=== PATIENT | male | born 1975 | race Caucasian/White ===

== ENCOUNTER 2017-02-17 22:19 | Emergency (ER) | payer OTHER ==
[2017-02-17] MEDS ORDERED: Diphtheria,Pertussis(Acell),Tetanus Vaccine 0.5 ML Syringe IM ONE (22:26)
[2017-02-17 22:30] VITALS: BP 133/74
--- NOTE | 2017-02-17 22:30 | EDM.PDOC ---
ED HPI GENERAL MEDICAL PROBLEM - General Stated Complaint: CUT ON RIGHT THIGH Time Seen by Provider: 02/17/17 22:27 Source of Information: Reports: Patient - History of Present Illness INITIAL COMMENTS - FREE TEXT/NARRATIVE: HISTORY AND PHYSICAL: History of present illness: [] Patient has 1.5-2 cm linear laceration right anterior thigh, he was cutting boxes with a razor blade slipped and sustained As above approximately 3 inches above the patella right on midline wound it bled well superficial full- thickness skin no vascular lesion no fever nausea vomiting chills sweats Review of systems: As per history of present illness and below otherwise all systems reviewed and negative. Past medical history: As per history of present illness and as reviewed below otherwise noncontributory. Surgical history: As per history of present illness and as reviewed below otherwise noncontributory. Social history: No reported history of drug or alcohol abuse. Family history: As per history of present illness and as reviewed below otherwise noncontributory. Physical exam: HEENT: Atraumatic, normocephalic, pupils reactive, negative for conjunctival pallor or scleral icterus, mucous membranes moist, throat clear, neck supple, nontender, trachea midline. Lungs: Clear to auscultation, breath sounds equal bilaterally, chest nontender. Heart: S1S2, regular, negative for clicks, rubs, or JVD. Abdomen: Soft, nondistended, nontender. Negative for masses or hepatosplenomegaly. Negative for costovertebral tenderness. Pelvis: Stable nontender. Genitourinary: Deferred. Rectal: Deferred. Extremities: Atraumatic, negative for cords or calf pain. Neurovascular unremarkable. Neuro: Awake, alert, oriented. Cranial nerves II through XII unremarkable. Cerebellum unremarkable. Motor and sensory unremarkable throughout. Exam nonfocal. Diagnostics: [] Therapeutics: [] Or 2 erin interrupted Tetanus status is updated Impression: []2 Centimeter linear laceration Definitive disposition and diagnosis as appropriate pending reevaluation and review of above. - Related Data Allergies Allergy/AdvReac Type Severity Reaction Status Date / Time No Known Allergies Allergy Verified 02/17/17 22:28 Home Meds: Home Meds . [No Known Home Meds] 02/17/17 [History] ED ROS GENERAL - Review of Systems Review Of Systems: ROS reveals no pertinent complaints other than HPI. ED EXAM, GENERAL - Physical Exam Exam: See Below Course - Orders/Labs/Meds Orders: Active Orders 24 hr Category Date Time Status Vaccines to be Administered [RC] PER UNIT ROUTINE Care 02/17/17 22:26 Ordered Diphth,Pertuss(Acell),Tet Vac [Adacel] Med 02/17/17 22:26 Once 0.5 ml IM .ONCE ONE Departure - Departure Time of Disposition: 22:28 Disposition: Home, Self-Care 01 Condition: good Clinical Impression: Laceration - Discharge Information Additional Instructions: Standard wound care as instructed Keep wound clean and dry for 48 hours Return of red warm or pus drainage should it develop Erin out in 10 days he may return to ER for removal The following information is given to patients seen in the emergency department who are being discharged to home. This information is to outline your options for follow-up care. We provide all patients seen in our emergency department with a follow-up referral. The need for follow-up, as well as the timing and circumstances, are variable depending upon the specifics of your emergency department visit. If you don't have a primary care physician on staff, we will provide you with a referral. We always advise you to contact your personal physician following an emergency department visit to inform them of the circumstance of the visit and for follow-up with them and/or the need for any referrals to a consulting specialist. The emergency department will also refer you to a specialist when appropriate. This referral assures that you have the opportunity for follow-up care with a specialist. All of these measure are taken in an effort to provide you with optimal care, which includes your follow-up. Under all circumstances we always encourage you to contact your private physician who remains a resource for coordinating your care. When calling for follow-up care, please make the office aware that this follow-up is from your recent emergency room visit. If for any reason you are refused follow-up, please contact the [facility] emergency department at and asked to speak to the emergency department charge nurse. - My Orders Last 24 Hours: My Active Orders 02/17/17 22:26 Vaccines to be Administered [RC] PER UNIT ROUTINE Diphth,Pertuss(Acell),Tet Vac [Adacel] 0.5 ml IM .ONCE ONE - Assessment/Plan Last 24 Hours: My Active Orders 02/17/17 22:26 Vaccines to be Administered [RC] PER UNIT ROUTINE Diphth,Pertuss(Acell),Tet Vac [Adacel] 0.5 ml IM .ONCE ONE
== END 2017-02-17 22:41 | disposition home or self-care (01) ==
LOC: MW.ED 22:19
DX: S71.111A Laceration without foreign body, right thigh, initial encounter (principal); Z23 Encounter for immunization; W45.8XXA Other foreign body or object entering through skin, initial encounter
CPT/HCPCS: 12001; 90471; 90715; 99282; 99282-25

== ENCOUNTER 2020-03-02 21:02 | Emergency (ER) | payer OTHER ==
[2020-03-02] MEDS ORDERED: Sodium Chloride 0.9% 2.5 ML Syringe FLUSH PRN (21:15)
[2020-03-02] MEDS ORDERED: Sodium Chloride 0.9% 10 ML Syringe FLUSH PRN (21:15)
[2020-03-02] MEDS ORDERED: Ibuprofen 600 MG Tab PO ONE (21:18)
[2020-03-02] MEDS ORDERED: Acetaminophen/HYDROcodone 325-5 MG Tab PO ONE (21:18)
[2020-03-02 21:51] LABS: BLOOD UREA NITROGEN,BUN 13 mg/dL (7.0-18.0); CARBON DIOXIDE,CO2 22.8 mmol/L (21.0-32.0); CHLORIDE,CL 101 mmol/L (98-107); GLUCOSE RANDOM 109 mg/dL (74-106); POTASSIUM,K 3.5 mmol/L (3.5-5.1); SODIUM,NA 137 mmol/L (136-148)
--- NOTE | 2020-03-02 21:53 | CT ---
INDICATION: Trauma TECHNIQUE: CT maxillofacial without contrast. COMPARISON: None FINDINGS: Facial bones: Fracture of the maxillary spine with adjacent subcutaneous air. Orbits and globes: Unremarkable. Sinuses: Mucosal thickening right frontal, ethmoid and maxillary sinuses with obstruction of the right frontal recess and ostiomeatal complex. Mucosal thickening left maxillary sinus. Soft tissues: Unremarkable. IMPRESSION: Fracture of the maxillary spine with adjacent subcutaneous air. Mucosal thickening right frontal, ethmoid and maxillary sinuses with obstruction of the right frontal recess and ostiomeatal complex. Mucosal thickening left maxillary sinus. Dictated by Da Quijano MD @ 03/02/2020 9:51:38 PM Please note that all CT scans at this facility use dose modulation, iterative reconstruction, and/or weight-based dosing when appropriate to reduce radiation dose to as low as reasonably achievable. Dictated by: Da Quijano MD @ 03/02/2020 21:51:44 (Electronically Signed)
--- NOTE | 2020-03-02 21:58 | CT ---
INDICATION: Trauma TECHNIQUE: CT cervical spine without contrast. COMPARISON: None FINDINGS: Vertebral alignment: Alignment is normal. Vertebrae: There are no fractures or suspicious bony lesions. Discs and facet joints: Disc spaces and facets are within normal limits. Extraspinal findings: Prevertebral soft tissues, visualized airway, and visualized lungs are unremarkable. IMPRESSION: Atraumatic appearance of the cervical spine. Dictated by Da Quijano MD @ 03/02/2020 9:56:03 PM Please note that all CT scans at this facility use dose modulation, iterative reconstruction, and/or weight-based dosing when appropriate to reduce radiation dose to as low as reasonably achievable. Dictated by: Da Quijano MD @ 03/02/2020 21:56:08 (Electronically Signed)
--- NOTE | 2020-03-02 22:04 | CT ---
INDICATION: Trauma TECHNIQUE: CT head without contrast. COMPARISON: None FINDINGS: CSF spaces: Within normal limits for age. Brain parenchyma: The cartagena-white differentiation is normal. No sign of mass, hemorrhage, or midline shift. Skull base and calvarium: Pansinus disease. The visualized orbits are grossly unremarkable. No skull fractures. IMPRESSION: Atraumatic appearance of the brain. Dictated by Da Quijano MD @ 03/02/2020 10:03:17 PM Please note that all CT scans at this facility use dose modulation, iterative reconstruction, and/or weight-based dosing when appropriate to reduce radiation dose to as low as reasonably achievable. Dictated by: Da Quijano MD @ 03/02/2020 22:03:23 (Electronically Signed)
--- NOTE | 2020-03-02 22:08 | CT ---
INDICATION: Trauma TECHNIQUE: CT chest was acquired without IV contrast. COMPARISON: None FINDINGS: Cardiovascular structures: Heart size is normal. Thoracic aorta and main pulmonary artery are normal in caliber. Mediastinum and demond: No mass or adenopathy. Lungs: Clear. Pleura and pericardium: No effusions. Chest wall and axilla: No mass or adenopathy. Bones: No significant findings. Upper abdomen: Unremarkable. IMPRESSION: Atraumatic appearance to the chest. Dictated by Da Quijano MD @ 03/02/2020 10:06:23 PM Please note that all CT scans at this facility use dose modulation, iterative reconstruction, and/or weight-based dosing when appropriate to reduce radiation dose to as low as reasonably achievable. Dictated by: Da Quijano MD @ 03/02/2020 22:06:29 (Electronically Signed)
[2020-03-02 22:13] VITALS: BP 147/95; PULSE 107
[2020-03-02] MEDS ORDERED: ceFAZolin 2 GM in Premix Bag 1 BAG IV ONE (23:17)
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
== END 2020-03-03 00:15 | disposition home or self-care (01) ==
LOC: MW.ED 21:02
DX: S02.2XXA Fracture of nasal bones, initial encounter for closed fracture (principal); S06.0X1A Concussion with loss of consciousness of 30 minutes or less, initial encounter; S01.511A Laceration without foreign body of lip, initial encounter; S20.212A Contusion of left front wall of thorax, initial encounter; Y92.828 Other wilderness area as the place of occurrence of the external cause
CPT/HCPCS: 36415; 40650; 70450; 70486; 71250; 72125; 80053; 85025; 96365; 99284; A9270; J0690; J2001; 12015; 99285

== ENCOUNTER 2020-07-22 16:26 | Emergency (ER) | payer OTHER ==
[~2020-07-22 16:26] MED LIST: Bacitracin Oint 1 GM U/D Packet TOP ONE
[2020-07-22] MEDS ORDERED: Bacitracin Oint 1 GM U/D Packet ONE (16:43)
--- NOTE | 2020-07-22 17:54 | EDM.PDOC ---
ED HPI GENERAL MEDICAL PROBLEM - General Chief Complaint: ENT Problem Stated Complaint: NOSE BLEED Time Seen by Provider: 07/22/20 16:34 - History of Present Illness INITIAL COMMENTS - FREE TEXT/NARRATIVE: HISTORY AND PHYSICAL: History of present illness: This 44-year-old gentleman with no significant past medical history presents ER today secondary to bleeding from his left nares. Patient reports that he went to get a coronavirus test earlier today and while being swabbed he started having bleeding from his left naris. Patient has no other complaints. Patient has any recent fevers, shakes, chills, nausea, vomiting, diarrhea. Patient reports he is not on any anticoagulant or antiplatelet medications. Patient reports he is has not had any prior issues with nosebleeds. Review of systems: As per history of present illness and below otherwise all systems reviewed and negative. Past medical history: As per history of present illness and as reviewed below otherwise noncontributory. Surgical history: As per history of present illness and as reviewed below otherwise noncontributory. Social history: No reported history of drug or alcohol abuse. Family history: As per history of present illness and as reviewed below otherwise noncontributory. Physical exam: Constitutional: Patient is oriented to person, place, and time. Appears well- developed and well-nourished. No distress. HEENT: Moist mucous membranes Head: Normocephalic and atraumatic Eyes: Right eye exhibits no discharge. Left eye exhibits no discharge. No scleral icterus Neck: Normal range of motion. No tracheal deviation present. Cardiovascular: Normal rate and regular rhythm. Pulmonary: Effort normal, no respiratory distress. Abdominal: No distention Musculoskeletal: Normal range of motion Neurologic: Alert and oriented to person, place and time. Skin: [place], warm and dry. Psychiatric: Normal mood and affect. Behavior is normal. Judgment and thought content normal. Nursing note and vital signs have been reviewed Patient's ER physical exam is significant for clot noted within his left naris. Patient with slow bleeding from his left naris. His right nares is clear. Assessment and plan: This is a 44-year-old gentleman who presents ER today secondary epistaxis. Epistaxis is most likely secondary to trauma from a coronavirus test. Patient's nares were visualized after he blew out a large clot from his left naris. Small area of bleeding identified in the posterior aspect of the nasal septum. No bleeding in the anterior aspect of the nasal septum was identified. Nasal clamp was placed for approximately 15 minutes and patient was reevaluated. After reevaluation, silver nitrate sticks were utilized to cauterize the area of concern where the bleeding was coming from. After the cauterization, bacitracin ointment was applied to the nares. And nasal clamps were applied for an additional 15 minutes. After nasal clamps were removed, the patient was monitored in the ED for approximately 30 minutes without any further active bleeding. Patient is 44 years old, healthy and on no medications. No indication at this time to draw labs as the injury and the bleeding appear to be secondary to trauma from the coronavirus test. Patient will be discharged to home with instructions to utilize the nasal clamp if bleeding should recur. Patient be instructed to utilize Neosporin or bacitracin ointment twice daily to both nares. Patient was instructed that if bleeding should return that is not resolved with nasal clamps for 15 minutes then he should return to the ER for reevaluation and possible packing of his nares. Reassessment at the time of disposition demonstrates that the patient is in no acute distress. The patient has remained stable throughout the entire ED visit and is without objective evidence for acute process requiring urgent intervention or hospitalization. The patient is stable for discharge, counseling is provided as documented above, discussed symptomatic treatment and specific conditions for return. I have spoken with the patient/caregiver and discussed todays findings, in addition to providing specific details for the plan of care. Questions are answered and there is agreement with the plan. Definitive disposition and diagnosis as appropriate pending reevaluation and review of above. - Related Data Allergies Allergy/AdvReac Type Severity Reaction Status Date / Time No Known Allergies Allergy Verified 07/22/20 16:36 Home Meds: Home Meds Ibuprofen [Motrin] 600 mg PO Q6H PRN #30 tab 03/03/20 [Rx] Past Medical History HEENT History: Reports: None Cardiovascular History: Reports: None Respiratory History: Reports: None Gastrointestinal History: Reports: None Genitourinary History: Reports: None Musculoskeletal History: Reports: None Neurological History: Reports: None Psychiatric History: Reports: None Endocrine/Metabolic History: Reports: None Hematologic History: Reports: None Immunologic History: Reports: None Oncologic (Cancer) History: Reports: None Dermatologic History: Reports: None - Infectious Disease History Infectious Disease History: Reports: Chicken Pox - Past Surgical History GI Surgical History: Reports: Other (See Below) Other GI Surgeries/Procedures: Abdominal Surgery/colon surgery as a child Male Surgical History: Reports: None Social & Family History - Family History Family Medical History: Noncontributory - Tobacco Use Tobacco Use Status *Q: Never Tobacco User - Caffeine Use Caffeine Use: Reports: Soda - Recreational Drug Use Recreational Drug Use: No ED ROS GENERAL - Review of Systems Review Of Systems: See Below ED EXAM, GENERAL - Physical Exam Exam: See Below Course - Vital Signs Last Recorded V/S: Last Vital Signs Temp Pulse 69 07/22/20 16:37 Resp 17 07/22/20 16:37 BP 150/46 H 07/22/20 16:37 Pulse Ox 97 07/22/20 16:37 - Orders/Labs/Meds Meds: Medications Discontinued Medications Generic Name Dose Route Start Last Admin Trade Name Freq PRN Reason Stop Dose Admin Bacitracin Confirm 07/22/20 16:43 Bacitracin Oint 1 Gm Administered 07/22/20 16:44 Dose 1 dose .ROUTE .STK-MED ONE Departure - Departure Time of Disposition: 17:56 Disposition: Home, Self-Care 01 Condition: Good Clinical Impression: Epistaxis due to trauma - Discharge Information Instructions: Nosebleed, Adult Referrals: Shailesh Bernardo MD [Primary Care Provider] - Forms: ED Department Discharge Additional Instructions: You were seen and evaluated in the ER today secondary to nosebleed most likely from trauma from the coronavirus test. We are identified the area of bleeding and placed silver nitrate on that area to help cauterize the vessel. Bacitracin has been used to help coat your nostril. You will be discharged home with a nasal clamp to utilize if the bleeding should restart. If you should start rebleeding we recommend that you place the nasal clamp on for approximately 10 minutes. If bleeding is persistent, please repeat and apply the nasal clamp for an additional 10 minutes. If bleeding persists after the second attempt and you will likely need to return to the ER for a nasal packing. The following information is given to patients seen in the emergency department who are being discharged to home. This information is to outline your options for follow-up care. We provide all patients seen in our emergency department with a follow-up referral. The need for follow-up, as well as the timing and circumstances, are variable depending upon the specifics of your emergency department visit. If you don't have a primary care physician on staff, we will provide you with a referral. We always advise you to contact your personal physician following an emergency department visit to inform them of the circumstance of the visit and for follow-up with them and/or the need for any referrals to a consulting specialist. The emergency department will also refer you to a specialist when appropriate. This referral assures that you have the opportunity for follow-up care with a specialist. All of these measure are taken in an effort to provide you with optimal care, which includes your follow-up. Under all circumstances we always encourage you to contact your private physician who remains a resource for coordinating your care. When calling for follow-up care, please make the office aware that this follow-up is from your recent emergency room visit. If for any reason you are refused follow-up, please contact the [facility] Emergency Department at and asked to speak to the emergency department charge nurse. [facility] - Primary [facility] [address] [place] [id number] [address] Sepsis Event Note (ED) - Evaluation Sepsis Screening Result: No Definite Risk - Focused Exam Vital Signs: Vital Signs Pulse Resp BP Pulse Ox 07/22/20 16:37 69 17 150/46 H 97
[2020-07-22 18:56] VITALS: BP 111/79; PULSE 64
== END 2020-07-22 18:25 | disposition home or self-care (01) ==
LOC: MW.ED 16:26
DX: R04.0 Epistaxis (principal)
CPT/HCPCS: 30905; 99283-25

== ENCOUNTER 2020-07-22 22:14 | Emergency (ER) | payer MEDICAID, OTHER ==
--- NOTE | 2020-07-22 23:28 | EDM.PDOC ---
ED HPI GENERAL MEDICAL PROBLEM - General Chief Complaint: ENT Problem Stated Complaint: NOSE BLEED Time Seen by Provider: 07/22/20 22:57 - History of Present Illness INITIAL COMMENTS - FREE TEXT/NARRATIVE: CHIEF COMPLAINT(S): Bloody nose HISTORY OF PRESENT ILLNESS: This is a 44-year-old man who is seen in our emergency department earlier today for epistaxis secondary to COVID-19 swab who comes to the emergency department with a chief complaint of bloody nose. The patient states that he had gone home and was doing fine. He states that there has been some small drainage and then approximately 1 hour prior to arrival he started to experience gushing of blood out of his left nose. He states that he use the clamp that was given to him and applied it for 30 minutes. He states that the bleeding did stop however it did recur. He states that since that time it has stopped however he decided to come to the emergency department given the amount of blood that was coming out. He denies any headache. He states that he did have 2 spit up some blood however denies any current feeling of blood in his posterior pharynx. He denies any use of oral anticoagulation or bleeding disorders. REVIEW OF SYSTEMS: Constitutional: Denies fever, chills. Eyes: Denies eye pain Ears, Nose, Mouth, & Throat: Positive for epistaxis Cardiovascular: Denies chest pain Respiratory: Denies shortness of breath Gastrointestinal: Denies Nausea, vomiting, diarrhea, hematochezia. Genitourinary: Denies hematuria Skin:Denies a rash Neurological: Denies blurred vision Psychiatric: Denies depression PAST MEDICAL HISTORY: As per history of present illness and as reviewed below otherwise noncontributory. SURGICAL HISTORY: As per history of present illness and as reviewed below otherwise noncontributory. SOCIAL HISTORY: As per history of present illness and as reviewed below otherwise noncontributory. FAMILY HISTORY: As per history of present illness and as reviewed below otherwise noncontributory. EXAMINATION OF ORGAN SYSTEMS/BODY AREAS: Constitutional: Blood pressure was 131/76, heart rate 56, respiratory rate 18 with an oxygen saturation of 97% on room air. Temperature 36.3 General: Overall well-appearing man who is in no acute distress. Psychiatric: Appropriate mood and affect. Eyes: No scleral icterus or conjunctival erythema ENMT: Moist mucous membranes. No pharyngeal erythema there does not appear to be any active bleeding visualized in the posterior pharynx. Right nasal turbinate is clear. There is some dried blood in the left naris without any active bleeding. Cardiovascular: Regular, rate, and rythym. No gallops, murmurs, or rubs. Bilateral upper extremity pulses symmetric and intact. No peripheral edema. No JVD. Respiratory: Lungs clear to auscultation bilaterally. No wheezes, rales, or rh onchi. Neurological: Alert, GCS 15 MEDICAL DECISION MAKING AND COURSE IN THE ED WITH INTERPRETATION/REVIEW OF DIAGNOSTIC STUDIES: This is a 44-year-old man with resultant epistaxis status post COVID-19 swab who was evaluated in our emergency department today status post cauterization with recurrent epistaxis and examination revealing no active bleeding with stable vital signs. At this time I did discuss with the patient that at this time no intervention is needed. I did discuss that he did do the right thing by using the compression device or his fingers that this should be used for 15 minutes. He is to return to the emergency department if the bleeding does not stop. I did discuss the use of humidifier and other methods of trying to eliminate recurrence. He is to return to the emergency department for any new or worsening symptoms. DISPOSITION: The patient was discharged home in stable condition. Patient will follow up with primary care physician as needed CONDITION: Fair PROCEDURES: None FINAL IMPRESSION(S)/DIAGNOSES: 1. Acute epistaxis, resolved Jamie Stokes M.D. Headache Pain Score (Numeric/FACES): 4 - Related Data Allergies Allergy/AdvReac Type Severity Reaction Status Date / Time No Known Allergies Allergy Verified 07/22/20 23:06 Home Meds: Home Meds Ibuprofen [Motrin] 600 mg PO Q6H PRN #30 tab 03/03/20 [Rx] Past Medical History HEENT History: Reports: None Cardiovascular History: Reports: None Respiratory History: Reports: None Gastrointestinal History: Reports: None Genitourinary History: Reports: None Musculoskeletal History: Reports: None Neurological History: Reports: None Psychiatric History: Reports: None Endocrine/Metabolic History: Reports: None Hematologic History: Reports: None Immunologic History: Reports: None Oncologic (Cancer) History: Reports: None Dermatologic History: Reports: None - Infectious Disease History Infectious Disease History: Reports: Chicken Pox - Past Surgical History GI Surgical History: Reports: Other (See Below) Other GI Surgeries/Procedures: Abdominal Surgery/colon surgery as a child Male Surgical History: Reports: None Social & Family History - Family History Family Medical History: Noncontributory - Tobacco Use Tobacco Use Status *Q: Never Tobacco User - Caffeine Use Caffeine Use: Reports: None - Recreational Drug Use Recreational Drug Use: No ED ROS ENT - Review of Systems Review Of Systems: See Below ED EXAM, ENT - Physical Exam Exam: See Below Course - Vital Signs Last Recorded V/S: Last Vital Signs Temp 36.3 C 07/22/20 23:38 Pulse 56 L 07/22/20 23:38 Resp 18 07/22/20 23:38 BP 131/76 07/22/20 23:38 Pulse Ox 97 07/22/20 23:38 Departure - Departure Time of Disposition: 23:27 Disposition: Home, Self-Care 01 Condition: Fair Clinical Impression: Epistaxis - Discharge Information *PRESCRIPTION DRUG MONITORING PROGRAM REVIEWED*: No *COPY OF PRESCRIPTION DRUG MONITORING REPORT IN PATIENT DELROY: No Instructions: Nosebleed, Adult Referrals: Shailesh Bernardo MD [Primary Care Provider] - Forms: ED Department Discharge Additional Instructions: The patient is informed of any results of their evaluation and diagnostic workup and all questions are answered. They are given discharge instructions and return precautions. The patient is stable for discharge. The patient states they u nderstand and agree with the plan and that they will return if their symptoms get worse or if they have any new concerns. The following information is given to patients seen in the emergency department who are being discharged to home. This information is to outline your options for follow-up care. We provide all patients seen in our emergency department with a follow-up referral. The need for follow-up, as well as the timing and circumstances, are variable depending upon the specifics of your emergency department visit. If you don't have a primary care physician on staff, we will provide you with a referral. We always advise you to contact your personal physician following an emergency department visit to inform them of the circumstance of the visit and for follow-up with them and/or the need for any referrals to a consulting specialist. The emergency department will also refer you to a specialist when appropriate. This referral assures that you have the opportunity for follow-up care with a specialist. All of these measure are taken in an effort to provide you with optimal care, which includes your follow-up. Under all circumstances we always encourage you to contact your private physician who remains a resource for coordinating your care. When calling for follow-up care, please make the office aware that this follow-up is from your recent emergency room visit. If for any reason you are refused follow-up, please contact the [facility] Emergency Department at and asked to speak to the emergency department charge nurse. Please continue to apply pressure for 15 minutes if you have recurrence of the bleed. If the bleeding stops you not need to come to the emergency department. If the bleeding worsens or you have any other concerns please return to the emergency department. Please follow-up with your primary care doctor within 1 week. Sepsis Event Note (ED) - Evaluation Sepsis Screening Result: No Definite Risk
[2020-07-22 23:40] VITALS: BP 131/76; PULSE 56
== END 2020-07-22 23:38 | disposition home or self-care (01) ==
LOC: MW.ED 22:14
DX: R04.0 Epistaxis (principal)
CPT/HCPCS: 99283